=== PATIENT | female | born 1980 | race Two or more races ===

== ENCOUNTER 2024-05-12 15:18 | Emergency (ER) | payer MEDICAID, SELFPAY ==
[2024-05-12 15:19] VITALS: BMI 25.6
[2024-05-12 15:44] VITALS: BP 159/109; PULSE 95; RESP 20; TEMP 37.4; O2SAT 95
--- NOTE | 2024-05-12 15:55 | XR_ITS ---
Examination: PA lateral chest 2 views TECHNIQUE: Upright PA lateral chest 2 views Exam date and time: May 12, 2024 1559 hours INDICATIONS: Coughing shortness of breath headache beginning 2 days ago FINDINGS: Normal heart size Lungs are clear. The osseous structures are intact IMPRESSION: No active disease
[2024-05-12 16:14] LABS: Strep A Rapid Negative (Negative)
--- NOTE | 2024-05-12 16:42 | PD.EDURI ---
Upper Respiratory Inf. RME/HPI General Chief Complaint: Flu Like Symptoms Stated Complaint: HEADACHE, COUGH, EARACHE AND FEELS LIKE CHOKING Time Seen by Provider: 05/12/24 15:25 Arrival date/time: 05/12/24 15:18 44-year-old female presents emerged part with complaints of headache, cough, earache and sore throat there are no other associated symptoms or aggravating factors no other modifying factors, patient denies taking medication before coming to ER today Limitations: no limitations Related Data Previous Rx's ?Medication ?Instructions ?Recorded hydroxyzine HCl 25 mg tablet 25 mg PO QID PRN itching #20 tabs 09/29/18 prednisone 20 mg tablet 20 mg PO BID #6 tabs 09/29/18 benzonatate 100 mg capsule 100 mg PO TID #14 caps 05/12/24 ibuprofen 600 mg tablet 600 mg PO Q6H #30 tabs 05/12/24 Allergies Allergy/AdvReac Type Severity Reaction Status Date / Time No Known Allergies Allergy Verified 05/12/24 15:21 Review of Systems Review of Systems Systems Reviewed: All systems reviewed, normal except as documented Constitutional Constitutional: Reports system reviewed and no additional complaints, except as documented, Denies fever(s) and Denies headache(s) Eyes Eyes: Reports system reviewed and no additional complaints, except as documented and Denies blurry vision ENT Ears, Nose, Mouth, and Throat: Reports system reviewed and no additional complaints, except as documented, Denies headache(s), Denies nasal congestion and Denies nasal discharge Cardiovascular Cardiovascular: Reports system reviewed and no additional complaints, except as documented, Denies chest pain and Denies dyspnea Respiratory Respiratory: Reports system reviewed and no additional complaints, except as documented, Denies chest congestion, Denies cough and Denies dyspnea Gastrointestinal Gastrointestinal: Reports system reviewed and no additional complaints, except as documented and Denies abdominal pain Integumentary/Breasts Skin/Breast: Reports system reviewed and no additional complaints, except as documented and Denies rash Neurologic Neurologic: Reports system reviewed and no additional complaints, except as documented, Reports as per HPI and Denies headache(s) Past Medical History Social History SMOKING STATUS: Never smoker ED Exam General Limitations: Present no limitations General appearance: Present alert and in no apparent distress Head Head exam: Present atraumatic, normocephalic and normal inspection Eye Eye exam: Present normal appearance, PERRL and EOMI; Absent conjunctival injection ENT ENT exam: Present normal exam, normal oropharynx and mucous membranes moist Neck Neck exam: Present normal inspection, full ROM and trachea midline Chest Chest inspection: Present normal inspection and symmetric chest wall rise Respiratory Respiratory exam: Present normal lung sounds bilaterally Cardiovascular Cardiovascular exam: Present regular rate, normal rhythm and normal heart sounds Abdominal Exam Abdominal exam: Present soft and normal bowel sounds; Absent distention, tenderness, guarding, rebound or rigidity Extremities Exam Extremities exam: Present normal inspection and full ROM Back Exam Back exam: Present normal inspection and full ROM Neurological Exam Neurological exam: Present alert, oriented X3, CN II-XII intact, normal gait and reflexes normal; Absent motor sensory deficit Psychiatric Psychiatric exam: Present normal affect and normal mood Skin Skin exam: Present warm, dry, intact and normal color; Absent rash Course Quality Measures none Orders Category Date Time Status Bedside COVID-19 Antigen Test NOW Care 05/12/24 15:55 Active Bedside Influenza A&B Antigen Test NOW Care 05/12/24 15:55 Completed XR chest 2V Stat Exams 05/12/24 15:55 Completed Strep A Rapid Stat Lab 05/12/24 15:59 Completed cefTRIAXone [Rocephin] 500 mg Med 05/12/24 15:31 Discontinued Lidocaine 1% 20 ml [Xylocaine 1% 20 ML] 1 ml IM X1 oxyCODONE/APAP 5/325 [Percocet 5/325] Med 05/12/24 15:30 Discontinued 1 tab PO X1 ONE Vital Signs Vital signs: Vital Signs Temperature 99.3 F 05/12/24 15:44 Pulse Rate 95 05/12/24 15:44 Respiratory Rate 20 05/12/24 15:44 Blood Pressure 159/109 H 05/12/24 15:44 Pulse Oximetry (%) 95 05/12/24 15:44 Oxygen Delivery Method Room Air 05/12/24 15:44 O2 saturation 95% r/a wnl Upper Respiratory Infection MDM Narrative MDM Narrative:: 44-year-old female presents emerged part with complaints of headache, cough, earache and sore throat there are no other associated symptoms or aggravating factors no other modifying factors, patient denies taking medication before coming to ER today On exam patient well-appearing patient's not appear ill or toxic and in no acute distress Patient checked for flu and COVID as well as strep throat Chest x-ray obtained Chest x-ray no acute pneumonic infiltrates Patient did test positive for the flu consistent with symptoms Patient discharged home in no distress to follow-up with primary care doctor in the next 24 to 48 hours and for any worsening symptoms to return to the ER immediately Patient data External records reviewed:: [facility] previous records Clinical information provided by:: patient Social determinants that could affect healthcare access:: none Patient has the following chronic illnesses:: None How is presenting disease/condition affected by chronic disease/condition?: no chronic disease Evaluation data The following diagnostics were reviewed and interpreted by me:: lab results and radiology exam(s) Lab and/or radiology exams considered but not ordered:: Reviewed by me Interpretation Summary: Given Medications / Prescriptions Medications or Prescriptions considered but not ordered:: Given Medication administrations:: Medication Administration History Discontinued Medications Ceftriaxone Sodium 500 mg/ (Lidocaine HCl 1 ml) 0 mg IM X1 ONE Stop: 05/12/24 15:32 Last Admin: 05/12/24 15:34 Dose: Not Given Documented By: OA Non-Admin Reason: Discontinued Oxycodone/Acetaminophen (Oxycodone/Apap 5/325 Tablet) 1 tab PO X1 ONE Stop: 05/12/24 15:31 Last Admin: 05/12/24 15:34 Dose: Not Given Documented By: OA Non-Admin Reason: Discontinued Given Consultations Consultation(s) initiated? (list below): No Diagnosis Upper Respiratory Differential Diagnosis: upper respiratory infection, sinusitis, viral infection, bronchitis, influenza and pharyngitis Most likely diagnosis given after review of the tests above:: Given Admission Indicated Admission indicated?: not indicated Admission Request Was there a request for admission?: No Disposition Plan Disposition Plan: Discharge Discharge Attestation Discharge Attestation: The patient and all family members were given an opportunity to ask questions and understood the discharge instructions. Discharge instructions specifically effects, indications for sooner follow up or return to the emergency department, and the expected course of current diagnosis. Patient condition: Stable Discharge Plan Plan Patient Disposition: HOME (Self Care) Disposition Comment: Stable Prescriptions/Referrals Prescriptions/Med Rec: New benzonatate 100 mg capsule 100 mg PO TID Qty: 14 0RF ibuprofen 600 mg tablet 600 mg PO Q6H Qty: 30 0RF No Action hydroxyzine HCl 25 mg tablet 25 mg PO QID PRN (Reason: itching) Qty: 20 0RF prednisone 20 mg tablet 20 mg PO BID Qty: 6 0RF Referrals: Iris Oh PA-C [Primary Care Provider] - 05/13/24 Problem List Clinical Impression: Influenza Patient/Caregiver Discharge Instructions Education Materials: ED Influenza (Adult) Additional Instructions: Please follow up with your primary care doctor in the next 24-48hrs for any worsening symptoms return here immediately Print Language: [place]uran Stand Alone Forms: Helen Award Info., Patient Portal Info Letter PA/UTILITY GELATIN MAKER Supervising Physician PA/UTILITY GELATIN MAKER Supervising Physician: Dr. Prasad
[2024-05-12 17:38] VITALS: BP 152/96; TEMP 37.3
== END 2024-05-12 17:40 | disposition home or self-care (01) ==
PROVIDERS: Nurse Practitioner Primary Care; Emergency Provider Emergency Medicine; PCP Physician Assistant
DX: J11.1 Influenza due to unidentified influenza virus with other respiratory manifestations (principal)
CPT/HCPCS: 71046; 87400; 87651; 87811; 99283